=== PATIENT | female | born 1980 | race Caucasian/White ===

== ENCOUNTER 2020-11-01 05:40 | Outpatient (RCR) | payer OTHER ==
[~2020-11-01] VITALS: Ht 167 cm; Wt 120.4 kg
[2020-11-01] MEDS ORDERED: MULT-1136 PO (11:16)
[2020-11-01] MEDS ORDERED: CYCL10TA9 PO (11:16)
== END 2020-11-01 11:37 | disposition home or self-care (01) ==
LOC: PREOP 05:40
PROVIDERS: ATTEND Obstetrics & Gynecology
DX: Z01.818 Encounter for other preprocedural examination (principal)

== ENCOUNTER 2020-11-05 09:41 | Day surgery (SDC) | payer OTHER ==
[2020-11-05] VITALS (11 sets, daily range): BP systolic 106–133; BP diastolic 56–80
[~2020-11-05] VITALS: Ht 167 cm; Wt 120.4 kg
[~2020-11-05 09:41] MED LIST: CYCL10TA9 PO; MULT-1136 PO
[2020-11-05] MEDS ORDERED: ceFAZolin INJECTION 1,000 MG in WATER (STERILE) FOR INJECTION 10 ML IV ONE (09:45)
[2020-11-05] MEDS ORDERED: CATHETER FLUSH 10 ML SYR IV PRN (10:00)
[2020-11-05 10:26] LABS: BASOPHILS % (AUTO) 1 % (0-10); EOSINOPHILS # (AUTO) 0.1 10^3/uL (0.0-0.3); EOSINOPHILS % (AUTO) 1 % (0-10); HEMATOCRIT 39 % (35-52); HEMOGLOBIN 12.9 g/dL (11.5-16.0); LYMPHOCYTES # (AUTO) 1.6 10^3/uL (1.0-4.0); LYMPHOCYTES % (AUTO) 34 % (12-44); MEAN CORPUSCULAR HEMOGLOBIN 28 pg (25-34); MEAN CORPUSCULAR HGB CONC 33 g/dL (32-36); MEAN CORPUSCULAR VOLUME 86 fL (80-99); MEAN PLATELET VOLUME 11.1 fL (9.0-12.2); MONOCYTES # (AUTO) 0.4 10^3/uL (0.0-1.0); MONOCYTES % (AUTO) 8 % (0-12); NEUTROPHILS # (AUTO) 2.7 10^3/uL (1.8-7.8); NEUTROPHILS % (AUTO) 56 % (42-75); PLATELET COUNT 280 10^3/uL (130-400); WHITE BLOOD COUNT 4.8 10^3/uL (4.3-11.0)
--- NOTE | 2020-11-05 11:27 | Progress Note-Pre Operative ---
Pre-Operative Progress Note H&P Reviewed The H&P was reviewed, patient examined and no changes noted. Date Seen by Provider: Nov 05, 2020 Time Seen by Provider: : Date H&P Reviewed: Nov 05, 2020 Time H&P Reviewed: : Pre-Operative Diagnosis: dysfunctional uterine bleeding/menorrhagia/severe pelvic relaxation/str NADIA HOLLOWAY MD Nov 05, 2020 11:27
--- NOTE | 2020-11-05 11:29 | Progress Note-Post Operative ---
Post-Operative Progess Note Surgeon (s)/Educational Technology Specialist (s) Surgeon NADIA HOLLOWAY MD Educational Technology Specialist: Daniel Pre-Operative Diagnosis dysfunctional uterine bleeding/menorrhagia/severe pelvic relaxation/str Post-Operative Diagnosis Same with pathology pending Procedure & Operative Findings Date of Procedure 11/05/20 Procedure Performed/Findings TLH with BS , R ovary and with anterior posterior vaginal repair with enterocele repair and with Dr. Vasquez doing a pubovaginal sling and cystoscopy Anesthesia Type GETA Estimated Blood Loss Estimated blood loss (mL): 450cc Specimens/Packing Specimens Removed Uterus and fallopian tubes Packing: Kerlix gauze in the vagina NADIA HOLLOWAY MD Nov 05, 2020 11:29
[2020-11-05] MEDS ORDERED: PROMETHAZINE INJ 25 MG/ML (PHENERGAN) AMP IM PRN (11:30)
[2020-11-05] MEDS ORDERED: BENZOCAINE/MENTHOL (DERMOPLAST) 60 ML CAN TP PRN (11:30)
[2020-11-05] MEDS ORDERED: ESTROGENS CONJ INJECTION 25 MG in WATER (STERILE) FOR INJECTION 5 ML IV ONE (11:30)
[2020-11-05] MEDS ORDERED: MEPERIDINE (DEMEROL) INJ 100 MG/ML IM PRN (11:30)
[2020-11-05] MEDS ORDERED: KETOROLAC 30 MG/ML VIAL IVP SCH (11:30)
[2020-11-05] MEDS ORDERED: ONDANSETRON 4 MG/2 ML (SDV) Z0FRAN IVP PRN (11:30)
[2020-11-05] MEDS ORDERED: IBUP-1780 PO (11:38)
[2020-11-05] MEDS ORDERED: OXYC1TAB87 PO (11:38)
[2020-11-05] MEDS ORDERED: DOCU-143 PO (11:38)
[2020-11-05] MEDS ORDERED: LIDOCAINE/EPI 1%-1:100,000 (XYLOCAINE) 50 ML ONE (11:38)
[2020-11-05] MEDS ORDERED: ESTRADIOL VAGINAL CREAM 42.5 GM (ESTRACE) VG ONE (11:54)
[2020-11-05] MEDS ORDERED: ROCURONIUM 10 MG/ML 5 ML SYRINGE IV ONE (11:55)
[2020-11-05] MEDS ORDERED: ONDANSETRON 4 MG/2 ML (SDV) Z0FRAN ONE (11:55)
[2020-11-05] MEDS ORDERED: proPOfol 200 MG/20 ML (DIPRIVAN) VIAL IV ONE ×2 (11:55→14:41)
[2020-11-05] MEDS ORDERED: LIDOCAINE PF 2% 5 ML (XYLOCAINE) VIAL ONE (11:55)
[2020-11-05] MEDS ORDERED: SEVOFLURANE (ULTANE) 15 ML INHAL SOLN ONE ×8 (11:55→15:00)
[2020-11-05] MEDS ORDERED: fentaNYL INJECTION 100 MCG/2 ML AMP ONE ×3 (11:56→15:11)
[2020-11-05] MEDS ORDERED: MIDAZOLAM 2 MG/2 ML (VERSED) VIAL ONE (11:56)
--- NOTE | 2020-11-05 12:36 | Progress Note-Post Operative ---
Post-Operative Progess Note Surgeon (s)/University Lecturer (s) Surgeon JEN LEWIS MD University Lecturer: Sandeep HOLLOWAY Pre-Operative Diagnosis ROSHNI Post-Operative Diagnosis SAME Procedure & Operative Findings Date of Procedure 11/05/20 Procedure Performed/Findings PVS AND CYSTOSCOPY Anesthesia Type GENERAL Estimated Blood Loss Estimated blood loss (mL): NEGLIGIBLE Specimens/Packing Specimens Removed NONE Packin GM ESTRACE VAG PACK JEN LEWIS MD Nov 05, 2020 12:36
[2020-11-05] MEDS: LACTATED RINGERS 1,000 ML IV PRN ×2 (12:53→13:52)
[2020-11-05] MEDS ORDERED: fentaNYL INJECTION 100 MCG/2 ML AMP IVP ONE (13:00)
[2020-11-05] MEDS ORDERED: morphine INJ 10 MG/ML 1ML (SYR OR VIAL) IVP ONE (13:00)
[2020-11-05] MEDS ORDERED: GLYCOPYRROLATE 0.2 MG/ML (ROBINUL) 2 ML VIAL ONE ×2 (13:46→14:20)
[2020-11-05] MEDS ORDERED: NEOSTIGMINE 3 MG/3 ML VIAL ONE (13:46)
--- NOTE | 2020-11-05 13:47 | NUR ---
Patient requested this Survey Worker for visit and prayer prior to surgery. Pt shared the history of uterine cancer in her family, and expressed desire to be proactive about her health. She is Mu-Ism and attends [employer] in [place], [place]. Pt is a construction controller and describes dynamic, personal relationship with the Divine. Her was present throughout our visit and provided companionship while engaging in meaningful conversation along with the patient. This Survey Worker offered prayer for healing, reassurance and inner peace. The pt expressed feeling comforted. Survey Worker remained with the patient until she was taken to surgery.
[2020-11-05] MEDS ORDERED: ESTROGENS CONJ IV 25 MG/5 ML (PREMARIN) VIAL ONE (14:49)
[2020-11-05] MEDS ORDERED: WATER (STERILE) FOR INJECTION 10 ML ONE (14:49)
[2020-11-05] MEDS ORDERED: KETOROLAC 30 MG/ML VIAL ONE (14:49)
[2020-11-05] MEDS ORDERED: morphine INJ 10 MG/ML 1ML (SYR OR VIAL) ONE (15:26)
--- NOTE | 2020-11-05 16:00 | NUR ---
Lauren Kenneth admitted to room 3304-1 after a robo assisted total laproscopic hysterectomy with bso and A&P repair accompanied by PACU staff.LAUREN SZYMANSKI introduced to surroundings, call light, bed controls, phone, TV, temperature control, lights, meal times, smoking policy, visitor policy, side rail policy, bathrooms and showers. Patient Rights given to patient in the handbook.
[2020-11-05] MEDS: D5 LR IV SOLUTION 1,000 ML IV SCH (17:11)
--- NOTE | 2020-11-05 18:00 | NUR ---
IS instructions given to patient. Pt has a goal of 2600. Pt performed IS.
--- NOTE | 2020-11-05 18:45 | OPERATIVE REPORT ---
DATE OF SERVICE: 11/05/2020 PREOPERATIVE DIAGNOSIS: On my part, stress urinary incontinence. POSTOPERATIVE DIAGNOSIS: On my part, stress urinary incontinence. OPERATION PERFORMED: Pubovaginal sling and cystoscopy. SURGEON: Dante Lewis MD ANESTHESIA: General. COMPLICATIONS: None. DESCRIPTION OF PROCEDURE: After Dr. Bejarano performed the first part of his surgery that he will dictate, I inserted the Zhu catheter draining clear urine. I passed the device for the sling on both sides using the described technique. The sling was sitting nicely under the mid urethra with no twisting or tension and passage of a curved hemostat easily between it and the underlying tissue. I removed the Zhu catheter and performed cystoscopy to confirm the integrity of the ureters, bladder and urethra with no foreign body and presence of the sling under the mid urethra. I left the bladder half full, removed the cystoscope and performed the manual Valsalva maneuver that was negative. I reinserted the Zhu catheter draining clear urine. Estimated blood loss on my part negligible and Dr. Bejarano proceeded with rest of his surgery that he will dictate. Job ID: [id number] DocumentID: [id number] Dictated Date: 11/05/2020 14:15:36 Continuing Education Specialist Date: 11/05/2020 18:45:00 Dictated By: DANTE LEWIS MD
[2020-11-05] MEDS: oxyCODONE/APAP 5/325MG (PERCOCET 5) TABLET PO PRN (20:43)
[2020-11-05] MEDS: KETOROLAC 30 MG/ML VIAL IVP SCH (20:44)
--- NOTE | 2020-11-05 20:45 | NUR ---
Assessments done. pt wanting to walk around room. Assisted up and pt walked to door and back x2. Tolerated well. Back to bed. Pain meds given. SCD's in place.
--- NOTE | 2020-11-05 22:20 | NUR ---
Pt feeling well. has been sleeping. Pain is gone.
[2020-11-06] MEDS: D5 LR IV SOLUTION 1,000 ML IV SCH ×2 (01:09→09:16)
[2020-11-06] MEDS: oxyCODONE/APAP 5/325MG (PERCOCET 5) TABLET PO PRN ×4 (01:11→23:08)
[2020-11-06 02:30] VITALS: BP 110/57
[2020-11-06] MEDS: KETOROLAC 30 MG/ML VIAL IVP SCH ×2 (03:12→09:07)
[2020-11-06 06:00] VITALS: BP 120/56
--- NOTE | 2020-11-06 06:15 | NUR ---
Zhu removed and vag packing removed. instructed to not go to the bathroom by herself. verbalized understanding.
--- NOTE | 2020-11-06 06:50 | NUR ---
Standby assist pt to bathroom. Unable to void at this time. Back to bed. Pain meds given
--- NOTE | 2020-11-06 07:00 | NUR ---
Report received from Ray HANSON.
--- NOTE | 2020-11-06 07:24 | OPERATIVE REPORT ---
DATE OF SERVICE: 11/05/2020 PREOPERATIVE DIAGNOSES: Severe pelvic relaxation with stress urinary incontinence and menorrhagia and dysfunctional uterine bleeding. POSTOPERATIVE DIAGNOSES: Severe pelvic relaxation with stress urinary incontinence and menorrhagia and dysfunctional uterine bleeding with extensive abdominal adhesions, umbilical hernia and final pathology pending. OPERATIVE PROCEDURE: Extensive adhesiolysis followed by total laparoscopic hysterectomy with right salpingo-oophorectomy and left salpingectomy as well as anterior and posterior vaginal repairs with enterocele repair with Dr. Laura performing a pubovaginal sling and cystoscopy. OPERATIVE DESCRIPTION: With the patient in the supine position under satisfactory general anesthesia, she was repositioned in the dorsal lithotomy position in the [facility] and then prepped and draped in the usual fashion for abdominal and vaginal surgery using the da Dhiraj equipment for assistance. Weighted speculum placed in posterior fornix of vagina, cervix exposed and grasped anteriorly with single tooth tenaculum. Uterus was sounded to 14 cm with uterine sound. The cervix was then serially dilated with Jorge dilators to accommodate a Esme II manipulator, which was placed using a 6 mm x 8 cm uterine probe and a 30 mm colpotomy ring. Sutures of #1 Vicryl placed at 3 and 9 o'clock position of the cervix to affix the uterus to the manipulator. Zhu catheter was placed in the urinary bladder and patient brought in low dorsal lithotomy position. A 12 mm incision was made 10 cm superior to the umbilicus. Veress needle was placed through that incision into the abdominal cavity and correct placement confirmed with the water drop test. The abdomen was insufflated with 2.4 liters of carbon dioxide. The Veress needle was then removed and a 12 mm Optiview laparoscopic port placed. Additional ports of 8 mm were placed 8 cm lateral to the umbilicus at a level approximately 4 cm above the umbilicus. The laparoscope was introduced through the midline port. It was immediately apparent there was a large omental adhesion to the anterior abdominal wall basically with the large portion of the omentum extruded into an umbilical hernia and somewhat incarcerated there. Using the two lateral ports and a Cadiere grasper, the omentum was eventually extracted and freed from the adhesions and from the hernia. The omentum sustained some trauma in the process, but there was no significant bleeding and the bulk of the omental tissue was essentially intact. With that adhesions freed, the entire pelvis could be seen. The patient was placed in Trendelenburg allowing the bowel spill out of the pelvis. It was immediately evident there was a large cystic mass involving the right ovary that was approximately 10 cm in size. It had a benign appearance. There were no external excrescences. There was no significant free fluid. There was no ascites. The laparoscope was rotated. The appendix could not be identified, so no further attempt was made to see the appendix. The laparoscope was used to examine the uterus and the left tube and ovary, which were normal in appearance. Decision was made to go ahead with right salpingo-oophorectomy in conjunction with hysterectomy and conservation of the left ovary. Using a vessel sealer, the right IP ligament was clamped, cauterized and divided. This was continued stepwise across the mesovarium to the round ligament, which was treated in the same manner across the broad ligament down on the cardinal ligament in the same manner as well. Hemostasis was complete. The left side of the pelvis was examined. The left fallopian tube was from the ovary using the vessel sealer again in a stepwise fashion across the mesosalpinx and then across the uteroovarian pedicle and the round ligament, the broad ligament and finally down on the cardinal ligament. The anterior lower uterine segment was exposed and using a monopolar shear in place of the vessel sealer, the anterior lower uterine segment peritoneum was divided. The bladder was carefully dissected down off the lower uterine segment and then colpotomy incision was started at 12 o'clock position onto the colpotomy ring. That incision was continued circumferentially until the entire colpotomy was exposed. With that done, the uterus was extracted through the vagina. The right ovary was still attached to the uterus that would not pass through the vagina with the benign appearance to the cyst. The cyst was perforated. It did drain a mucinous appearing straw yellow fluid partially into the abdomen and pelvis before the ovary passed through the cervix. All the tissue was sent to pathology for permanent section. The vaginal cuff was now closed with a single suture of V-Loc barbed sutures first starting from the right angle continuing across the vaginal cuff to the left angle and taking care to ensure inclusion of the uterine vessel pedicles bilaterally. Hemostasis was complete. The omentum was examined in the areas of adhesiolysis, there was no overt bleeding. There was no bright red bleeding. At this point, the laparoscopic and da Dhiraj portion of the procedure was halted. The operative instruments were removed under direct vision as were the ports. The abdomen was evacuated of the insufflating gas in the process of removing the ports. The skin incisions were closed with jaleel after first closing the fascia at the supraumbilical incision with a [id number] suture of 2-0 Vicryl. Hemostasis was complete at all sites. The patient was now repositioned in dorsal lithotomy position for the vaginal part of the surgery. Weighted speculum placed in the posterior fornix of vagina. Fanta clamps were used to grasp the anterior vaginal wall near the midline. The vaginal wall was opened in the midline that opening was continued from approximately 1.5 cm from the urethral meatus to almost the apex of the vagina. The bladder wall was carefully dissected off the muscularis of the vagina bilaterally back to pubic rami and then the endopelvic fascia and bladder wall were plicated with 2-0 Vicryl sutures, elevating the bladder and lengthening the urethra. Sponge and needle counts were correct. At this point, Dr. Laura assumed care of the patient. I remained to assist. Dr. Laura performed a pubovaginal sling and a cystoscopy. He did confirm the integrity and the efflux of urine from both ureters. With completion of Dr. Laura's portion of procedure, he left the Zhu catheter to dependent drainage, draining clear yellow urine. I resumed care of the patient, resected redundant anterior vaginal muscularis and mucosa from the anterior vaginal wall and closed the vaginal wall with a running locked suture of 3-0 Vicryl Rapide. Good support was evident. Good reapproximation and good hemostasis was achieved. Posterior repair was now affected by placing Fanta clamps on the perineum and hymenal ring at 5 and 7 o'clock position, an inverted triangle of skin was removed from the perineal body and upright triangle from the posterior vaginal floor. The rectum was placed. The vaginal space was entered sharply and dissected bluntly to the apex of the vagina where it was explored for an enterocele; there was a small enterocele that was reduced and plicated with a single 2-0 Vicryl pursestring suture in the usual manner. Additional sutures of 2-0 Vicryl were now used to obliterate the perineal body and restore the support for the posterior vaginal wall. Additional sutures were placed until the perineal body itself was restored with additional suture of 2-0 Vicryl. Redundant posterior vaginal wall muscularis and mucosa was removed sharply. Vaginal wall was closed with a running locked 3-0 Vicryl Rapide, that closure was continued past the hymenal ring down on the perineal body then back up subcutaneous where the suture was tied. Digital rectal exam confirmed no stricture or stenosis of the rectum, examined the vagina and found no significant bleeding. The posterior repair being complete, the vagina filled with estrogen vaginal cream and a pack of Kerlix gauze was placed. Zhu catheter was left to dependent drainage. It was draining clear yellow urine. Sponge and needle counts were correct on completion of procedure. Estimated blood loss for the procedure was around 450 mL. The patient tolerated the procedure well and was uneventfully awakened from her general anesthesia and transferred to the recovery room in stable condition. Job ID: [id number] DocumentID: [id number] Dictated Date: 11/05/2020 22:41:38 Microbiological Laboratory Technician Date: 11/06/2020 07:24:17 Dictated By: NADIA HOLLOWAY MD
--- NOTE | 2020-11-06 07:40 | NUR ---
Dr Bejarano here, new orders received.
--- NOTE | 2020-11-06 07:42 | Progress Note ---
Standard Progress Note Progress Notes/Assess & Plan Date Seen by a Provider: Nov 06, 2020 Time Seen by a Provider: 07:41 Progress/Assessment & Plan This patient is without complaint. She has good pain control and is tolerating oral intake well. She has not voided as of yet. Patient denies headache, denies shortness of breath, and denies nausea vomiting. Vital Signs Date Time Temp Pulse Resp B/P (MAP) Pulse Ox O2 Delivery O2 Flow Rate FiO2 11/06/20 06:00 35.8 67 18 120/56 (77) 98 11/06/20 02:30 36.9 62 18 110/57 (74) 96 Room Air 11/05/20 22:19 36.5 64 18 109/70 (83) 95 11/05/20 18:26 36.6 68 16 107/56 (73) 100 Room Air 11/05/20 16:09 36.5 65 16 117/63 (81) 96 Room Air 11/05/20 15:55 Room Air 11/05/20 15:50 36.9 18 116/68 (84) 100 Room Air 11/05/20 15:40 18 133/71 (91) 100 OxyMask 2 11/05/20 15:40 OxyMask 2 11/05/20 15:30 14 124/72 (89) 100 OxyMask 2 11/05/20 15:30 OxyMask 4 11/05/20 15:20 12 126/68 (87) 100 OxyMask 4 11/05/20 15:20 OxyMask 6 11/05/20 15:10 14 106/66 (79) 100 OxyMask 6 11/05/20 15:10 OxyMask 8 11/05/20 15:00 18 122/80 (94) 100 OxyMask 8 11/05/20 14:54 OxyMask 10 11/05/20 14:54 36.9 17 122/67 (85) 100 OxyMask 10 11/05/20 10:30 36.5 60 18 106/59 (75) 97 Room Air I & O 11/06/20 07:00 Intake Total 3020 ml Output Total 1940 ml Balance 1080 ml Vital signs are stable. Patient is afebrile. Abdomen is benign. Extremities show no clubbing or cyanosis. There is no Homans' sign. Assessment and plan postoperative day #1 doing well. Plan is for routine convalescent care with discharge home upon demonstration of adequate bladder function Final Diagnosis Uterovaginal prolapse and stress urinary incontinence NADIA HOLLOWAY MD Nov 06, 2020 07:42
--- NOTE | 2020-11-06 09:00 | NUR ---
Initial assessment completed, vss, no distress noted, see interventions for detailed assessments, plan of care reviewed with pt, no questions noted. Assisted pt to br, unable to void. Pt up in halls walking, will monitor closely.
[2020-11-06 09:04] VITALS: BP 109/69
[2020-11-06] MEDS: DOCUSATE SODIUM 100 MG (COLACE) CAP PO SCH ×2 (09:07→21:24)
--- NOTE | 2020-11-06 10:20 | NUR ---
Dr Laura here, new orders received.
--- NOTE | 2020-11-06 10:34 | Progress Note - Urology ---
Progress Note-Urology Progress Notes/Assess & Plan Progress/Assessment & Plan RECOVERED WELL. DID NOT VOID YET. DRY. OBSERVE Final Diagnosis ROSHNI JEN LEWIS MD Nov 06, 2020 10:34
--- NOTE | 2020-11-06 11:55 | NUR ---
PT UP TO BR ATTEMPTING TO VOID, PT REPORTS HAVING URGE TO VOID.
[2020-11-06] MEDS ORDERED: CIPR-225 PO (12:57)
--- NOTE | 2020-11-06 13:11 | NUR ---
DR LEWIS CALLED WITH BLADDER SCAN RESULTS, NO NEW ORDERS RECEIVED.
--- NOTE | 2020-11-06 13:18 | Anesthesia-General Post-Op ---
General Patient Condition Mental Status/LOC: Same as Preop Cardiovascular: Satisfactory Nausea/Vomiting: Absent Respiratory: Satisfactory Pain: Controlled Complications: Absent Post Op Complications Complications None Follow Up Care/Instructions Patient Instructions None needed. Anesthesia/Patient Condition Patient Condition Patient is doing well, no complaints, stable vital signs, no apparent adverse anesthesia problems. No complications reported per nursing. KLEVER PLAZA CRNA Nov 06, 2020 13:18
--- NOTE | 2020-11-06 15:28 | NUR ---
PT UP TO BR, VOIDED SMALL AMOUNT, UP IN HALLS WALKING FEELS LIKE SHE NEEDS TO VOID MORE, WILL TRY AGAIN AFTER WALKING
[2020-11-06] MEDS: IBUPROFEN 800 MG (MOTRIN) TAB PO SCH ×2 (15:51→21:24)
--- NOTE | 2020-11-06 15:52 | NUR ---
BLADDER SCANNED PT, APPROX. 500ML NOTED, PT REPORTS FEELING LIKE SHE NEEDS TO VOID, UP TO BR, SCHEDULED MOTRIN GIVEN AND PERCOCET GIVEN FOR PAIN. STILL UNABLE TO VOID, DR LEWIS CALLED.
[2020-11-06 15:57] VITALS: BP 113/69
--- NOTE | 2020-11-06 16:00 | NUR ---
NEW ORDERS RECEIVED FROM DR LEWIS.
--- NOTE | 2020-11-06 16:15 | NUR ---
STRAIGHT CATH COMPLETED PER THIS RN, 600ML URINE COLLECTED. PERICARE COMPLETED. IV HEP LOCKED. PLAN OF CARE UPDATED WITH PT, DR HOLLOWAY UPDATED ABOUT PT STAYING OVERNIGHT.
[2020-11-06 18:38] VITALS: BP 108/60
--- NOTE | 2020-11-06 18:40 | NUR ---
ASSISTED PT TO SHOWER AFTER EATING DINNER TRAY. PT AMBULATED WELL WITH LITTLE ASSISTANCE. PT DENIES CONCERNS OR C/O WILL MONITOR CLOSELY, VSS.
[2020-11-06 21:25] VITALS: BP 102/60
[2020-11-07 03:02] VITALS: BP 97/58
[2020-11-07] MEDS: IBUPROFEN 800 MG (MOTRIN) TAB PO SCH ×2 (03:04→09:25)
--- NOTE | 2020-11-07 08:15 | NUR ---
INITIAL ASSESSMENT COMPLETED, SEE INTERVENTIONS OF DETAILED ASSESSMENTS, PLAN OF CARE REVIEWED WITH PT, QUESTIONS ANSWERED. PT VERY ANXIOUS ABOUT NOT VOIDING ON HER OWN YET AND HAVING TO SELF CATH. EDUCATED PT ABOUT IMPORTANCE OF KEEPING BLADDER EMPTIED AFTER SURGERY. PT VERBALIZES UNDERSTANDING.
[2020-11-07 08:19] VITALS: BP 125/70
[2020-11-07] MEDS: DOCUSATE SODIUM 100 MG (COLACE) CAP PO SCH (08:19)
--- NOTE | 2020-11-07 08:30 | NUR ---
PT UP TO BR, VOIDED 100ML, PT REPORTS STILL FEELING LIKE SHE NEEDS TO VOID.
--- NOTE | 2020-11-07 08:45 | NUR ---
BLADDER SCAN >750ML NOTED.
--- NOTE | 2020-11-07 09:00 | NUR ---
PT UP TO BR, STANDING AT SIDE OF STOOL, EDUCATED AND ASSISTED PT WITH SELF CATHETERIZATION, PT VERY ANXIOUS ABOUT PROCEDURE, 800ML URINE NOTED. PT VERY RELUCTANT TO TRY CATHING HERSELF AND TOTAL SUPPORT FROM RN NEEDED.
--- NOTE | 2020-11-07 09:22 | NUR ---
DR HOLLOWAY HERE, NO NEW ORDERS RECEIVED.
--- NOTE | 2020-11-07 09:38 | Progress Note ---
Standard Progress Note Progress Notes/Assess & Plan Date Seen by a Provider: Nov 07, 2020 Time Seen by a Provider: 09:35 Progress/Assessment & Plan This patient is without complaint. She has good pain control and is tolerating oral intake well. She has not voided as of yet. Patient denies headache, denies shortness of breath, and denies nausea vomiting. Vital Signs Date Time Temp Pulse Resp B/P (MAP) Pulse Ox O2 Delivery O2 Flow Rate FiO2 11/06/20 06:00 35.8 67 18 120/56 (77) 98 11/06/20 02:30 36.9 62 18 110/57 (74) 96 Room Air 11/05/20 22:19 36.5 64 18 109/70 (83) 95 11/05/20 18:26 36.6 68 16 107/56 (73) 100 Room Air 11/05/20 16:09 36.5 65 16 117/63 (81) 96 Room Air 11/05/20 15:55 Room Air 11/05/20 15:50 36.9 18 116/68 (84) 100 Room Air 11/05/20 15:40 18 133/71 (91) 100 OxyMask 2 11/05/20 15:40 OxyMask 2 11/05/20 15:30 14 124/72 (89) 100 OxyMask 2 11/05/20 15:30 OxyMask 4 11/05/20 15:20 12 126/68 (87) 100 OxyMask 4 11/05/20 15:20 OxyMask 6 11/05/20 15:10 14 106/66 (79) 100 OxyMask 6 11/05/20 15:10 OxyMask 8 11/05/20 15:00 18 122/80 (94) 100 OxyMask 8 11/05/20 14:54 OxyMask 10 11/05/20 14:54 36.9 17 122/67 (85) 100 OxyMask 10 11/05/20 10:30 36.5 60 18 106/59 (75) 97 Room Air I & O 11/06/20 07:00 Intake Total 3020 ml Output Total 1940 ml Balance 1080 ml Vital signs are stable. Patient is afebrile. Abdomen is benign. Extremities show no clubbing or cyanosis. There is no Homans' sign. Assessment and plan postoperative day #1 doing well. Plan is for routine convalescent care with discharge home upon demonstration of adequate bladder function November 08, 2020This patient is without complaint. She is ambulating tolera ting oral intake and has good pain control. She has voided 100 cc but then had a post void residual of 800 cc. We had a lengthy discussion regarding bladder function and the importance of emptying frequently to allow the bladder to return to normal capacity. Vital Signs Date Time Temp Pulse Resp B/P (MAP) Pulse Ox O2 Delivery O2 Flow Rate FiO2 11/07/20 08:19 36.4 91 18 125/70 (88) 98 11/07/20 03:02 36.7 73 18 97/58 (71) 98 11/06/20 21:25 36.2 67 18 102/60 (74) 100 11/06/20 18:38 36.9 75 20 108/60 (76) 99 Room Air 11/06/20 15:57 36.7 80 20 113/69 (84) 99 I & O 11/07/20 07:00 Intake Total 4550 ml Output Total 950 ml Balance 3600 ml Vital signs are stable. Patient is afebrile. Abdomen is benign Extremities show no clubbing or cyanosis. There is no Homans' sign. Assessment and plan postoperative day #2 doing well. Plan is for discharge home with follow-up in clinic. Dr. Juarez is managing bladder problems Final Diagnosis Uterovaginal prolapse/stress urinary incontinence NADIA HOLLOWAY MD Nov 07, 2020 09:38
[2020-11-07] MEDS ORDERED: BTH10T PO (10:42)
--- NOTE | 2020-11-07 10:44 | NUR ---
DR LEWIS CALLED, NEW ORDERS RECEIVED, PLAN OF CARE REVIEWED WITH PT.
--- NOTE | 2020-11-07 11:00 | NUR ---
TAM CATHETER INSERTED, CHANGED TO LEG BAG, SEE INTERVENTION.
--- NOTE | 2020-11-07 11:20 | NUR ---
AGGIE SZYMANSKI demonstrates understanding of discharge instructions and accurately returns instructions upon questioning. Copy of Post-Discharge Instructions given to PT. AGGIE SZYMANSKI is able to manage continuing needs after discharge. Patients belongings returned to . PRESCRIPTIONS CALLED TO [facility] IN [place], [place]. PT TO RETURN TO DR BEARD OFFICE TOMORROW 11/07/20 AT 1PM FOR F/U AND TOMORROW [address] WYLIE FOR STAPLE REMOVAL.
--- NOTE | 2020-11-07 13:50 | NUR ---
PT REQUESTING PAIN MEDS FOR RIDE HOME, LOUIE 2 TABLES GIVEN PO.
[2020-11-07 13:51] VITALS: BP 129/70
[2020-11-07] MEDS: oxyCODONE/APAP 5/325MG (PERCOCET 5) TABLET PO PRN (13:51)
--- NOTE | 2020-11-07 14:00 | NUR ---
Patient discharged from 330- on 11/07/20 at 1400. AGGIE SZYMANSKI left floor via [EC], accompanied by [STAFF].
== END 2020-11-07 14:00 | disposition home or self-care (01) ==
LOC: SDC 09:41 → WS 16:00 → SDC 11-07 14:00
PROVIDERS: ATTEND Obstetrics & Gynecology
DX: N84.0 Polyp of corpus uteri (principal); D39.11 Neoplasm of uncertain behavior of right ovary; N39.3 Stress incontinence (female) (male); N92.0 Excessive and frequent menstruation with regular cycle; N93.9 Abnormal uterine and vaginal bleeding, unspecified; K66.0 Peritoneal adhesions (postprocedural) (postinfection); K42.9 Umbilical hernia without obstruction or gangrene; E66.01 Morbid (severe) obesity due to excess calories; Z68.41 Body mass index [BMI] 40.0-44.9, adult; Z79.899 Other long term (current) drug therapy; Z88.5 Allergy status to narcotic agent; Z80.49 Family history of malignant neoplasm of other genital organs
CPT/HCPCS: 57265; 57288; 58571; 84703; 85025; 86850; 86900; 86901; 87081; C1771; 36415; 88307